=== PATIENT | female | born 1980 | race Caucasian/White ===

== ENCOUNTER 2017-08-06 12:12 | Emergency (ER) | payer MEDICAID ==
[~2017-08-06] VITALS: Ht 152.4 cm; Wt 56.7 kg
[~2017-08-06 12:12] MED LIST: NYQUIL
[2017-08-06 12:24] VITALS: BP 114/73
[2017-08-06] MEDS ORDERED: HYDROcodone/APAP 10/325 MG 1 TAB TAB PO STA ×2 (12:49→14:55)
[2017-08-06] MEDS ORDERED: KETOROLAC 30 MG/ML VIAL IM ONE (12:50)
[2017-08-06] MEDS ORDERED: DEXAMETHASONE 10 MG/ML VIAL IM ONE (14:55)
[2017-08-06] MEDS ORDERED: ONDANSETRON 4 MG ODT PO ONE (16:30)
== END 2017-08-06 17:20 | disposition home or self-care (01) ==
LOC: MED 12:12
DX: S72.111A Displaced fracture of greater trochanter of right femur, initial encounter for closed fracture (principal); X50.0XXA Overexertion from strenuous movement or load, initial encounter; Y93.89 Activity, other specified; Y92.89 Other specified places as the place of occurrence of the external cause; Y99.8 Other external cause status
CPT/HCPCS: 72192; 73502; 81025; 96372; 99284; J1100; J1885; Q0092; S0119